=== PATIENT | female | born 1980 | race Two or more races ===

== ENCOUNTER 2018-10-13 17:34 | Emergency (ER) | payer MEDICAID ==
[~2018-10-13] VITALS: Ht 152.4 cm; Wt 64.9 kg
[2018-10-13] MEDS ORDERED: IV NS 0.9% 1,000 ML BAG IV ONE (18:30)
[2018-10-13] MEDS ORDERED: KETOROLAC TROMETHAMINE INJ 30 MG/ML VIAL IV ONE (18:30)
[2018-10-13] MEDS ORDERED: ONDANSETRON HCL/PF 4 MG/2 ML VIAL IVP ONE (18:30)
[2018-10-13 18:35] LABS: BASOPHILS # (AUTO) 0.1 /CMM (0.0-0.2); BASOPHILS % (AUTO) 0.5 % (0.0-2.0); EOSINOPHILS % (AUTO) 0.1 % (0.0-6.0); HEMATOCRIT 41 % (33-45); HEMOGLOBIN 13.7 g/dL (11.5-14.8); LYMPHOCYTES # (AUTO) 0.9 /CMM (0.8-4.8); LYMPHOCYTES % (AUTO) 7.5 % (20.0-44.0); MEAN CORPUSCULAR HGB CONC 34 g/dl (31.0-36.0); MEAN CORPUSCULAR VOLUME 89 fL (82-100); MONOCYTES # (AUTO) 0.3 /CMM (0.1-1.30); MONOCYTES % (AUTO) 2.8 % (2.0-12.0); NEUTROPHILS # (AUTO) 10.9 /CMM (1.8-8.9); NEUTROPHILS % (AUTO) 89.1 % (43.0-81.0); PLATELET COUNT (AUTO) 302 /CMM (150-450); RED BLOOD CELL COUNT(AUTO) 4.54 MIL/uL (4.0-5.2); WHITE BLOOD COUNT (AUTO) 12.3 K/uL (4.3-11.0)
--- NOTE | 2018-10-13 18:35 | NUR ---
c/o periumbilical pain x 4 hrs constant with nausea , diarrhea this morning. PT AAOX4, VSS. DENIES CP, SOB, DIZZINESS @ THIS TIME. PT SEEN & EVAL'D BY DR. MOREIRA. AWAITING URINE TEST RESULT BEFORE PAIN MED GIVEN. WILL CONT TO MONITOR.
[2018-10-13 18:39] LABS: APPEARANCE,URINE Slightly Cloudy (CLEAR); BILIRUBIN,URINE SMALL (NEGATIVE); BLOOD, URINE Moderate Ery/uL (NEGATIVE); COLOR,URINE Yellow (YELLOW); KETONES,URINE 80 (NEGATIVE); LEUKOCYTE ESTERASE ,URINE Negative (NEGATIVE); NITRITE, URINE Negative (NEGATIVE); PH,URINE 5.5 (5.0-8.0); PROTEIN,URINE Negative (NEGATIVE); UGLUCOSE Negative (NEGATIVE); UROBILINOGEN,URINE 0.2 EU/dL (0.2)
[2018-10-13 18:48] LABS: CALCIUM, SERUM 8.9 mg/dL (8.5-10.1); CREATININE 0.7 mg/dL (0.6-1.3); POTASSIUM 3.6 mmol/L (3.5-5.1)
[2018-10-13 18:54] LABS: ALBUMIN 3.7 g/dL (3.4-5.0); BILIRUBIN,DIRECT 0.1 mg/dL (0.0-0.2); BILIRUBIN,TOTAL 0.3 mg/dL (0.2-1.0); TOTAL PROTEIN, SERUM 7.5 g/dL (6.4-8.2)
[2018-10-13 18:55] LABS: BACTERIA,URINE 1+ /HPF (None Seen); MUCUS,URINE Many /LPF (None Seen); SQUAMOUS EPITHELIAL CELL,UR Many /HPF (None Seen)
[2018-10-13] MEDS ORDERED: ONDANSETRON HCL/PF 4 MG/2 ML VIAL ONE (19:13)
[2018-10-13] MEDS ORDERED: KETOROLAC TROMETHAMINE INJ 30 MG/ML VIAL ONE (19:13)
--- NOTE | 2018-10-13 19:21 | NUR ---
PT TO CT VIA WHEELCHAIR.
--- NOTE | 2018-10-13 19:31 | NUR ---
PT BACK FROM CT
--- NOTE | 2018-10-13 19:34 | NUR ---
RECEIVED REPORT FROM DELILAH BERRY FOR [facility]. PT RESTING IN BED WITH NO S/S OF DISTRESS NOTED
--- NOTE | 2018-10-13 19:38 | NUR ---
PT TO RESTROOM
--- NOTE | 2018-10-13 21:30 | NUR ---
Patient discharged to home in stable condition. Written and verbal after care instructions given. Patient verbalizes understanding of instruction.IV removed. Catheter intact and site benign. Pressure and 4x4 applied to site. No bleeding noted.
[2018-10-13 21:44] VITALS: BP 109/65
== END 2018-10-13 21:45 | disposition home or self-care (01) ==
LOC: ER 17:36
DX: N39.0 Urinary tract infection, site not specified (principal); K42.9 Umbilical hernia without obstruction or gangrene; Z90.49 Acquired absence of other specified parts of digestive tract
CPT/HCPCS: 36415; 71045-TC; 80048-TC; 80076-TC; 81000-TC; 83690-TC; 84703-TC; 85025-TC; 87086-TC; J1885; J2405; J7030

== ENCOUNTER 2018-12-06 09:14 | Emergency (ER) | payer MEDICAID ==
[~2018-12-06] VITALS: Ht 154.9 cm; Wt 59.9 kg
--- NOTE | 2018-12-06 09:28 | NUR ---
PT TO ER BED 16. NO ACUTE DISTRESS. NO PAIN, DENIES CP, NO SOB. AWAITING FOR MD BOLTON
--- NOTE | 2018-12-06 10:00 | NUR ---
US TECH AT BEDSIDE
--- NOTE | 2018-12-06 11:06 | NUR ---
Patient discharged to home in stable condition. Written and verbal after care instructions given. Patient verbalizes understanding of instruction.
[2018-12-06 11:14] VITALS: BP 130/78
== END 2018-12-06 11:07 | disposition home or self-care (01) ==
LOC: ER 09:16
DX: O03.9 Complete or unspecified spontaneous abortion without complication (principal); Z90.49 Acquired absence of other specified parts of digestive tract
CPT/HCPCS: 36415; 76805-TC; 84702-TC

== ENCOUNTER 2019-01-15 09:22 | Emergency (ER) | payer MEDICAID ==
[~2019-01-15] VITALS: Ht 157.5 cm; Wt 64.4 kg
[2019-01-15 09:30] VITALS: BP 111/78
--- NOTE | 2019-01-15 09:34 | NUR ---
DR. ISBELL AT BEDSIDE FOR EVAL.
--- NOTE | 2019-01-15 09:46 | NUR ---
Patient discharged to home in stable condition. Written and verbal after care instructions given. Patient verbalizes understanding of instruction.
== END 2019-01-15 09:48 | disposition home or self-care (01) ==
LOC: ER 09:22
DX: H10.89 Other conjunctivitis (principal); J32.9 Chronic sinusitis, unspecified; Z90.49 Acquired absence of other specified parts of digestive tract
CPT/HCPCS: Z7502